=== PATIENT | male | born 1965 | race Caucasian/White ===

== ENCOUNTER 2018-07-14 11:29 | Emergency (ER) | payer OTHER ==
[~2018-07-14] VITALS: Ht 162.6 cm; Wt 94.3 kg
[~2018-07-14 11:29] MED LIST: JANUMET1 TAB PO; JANUVIA50 M1 PO; OMEPRAZOLE DR20 M1 PO; SIMVASTATIN20 M1 PO
[2018-07-14 11:36] VITALS: Ht 162.6 cm; Wt 94.3 kg
[2018-07-14 16:19] VITALS: BP 130/97
== END 2018-07-14 16:19 | disposition home or self-care (01) ==
LOC: ED 11:29
DX: S29.011A Strain of muscle and tendon of front wall of thorax, initial encounter (principal); I10 Essential (primary) hypertension; E11.9 Type 2 diabetes mellitus without complications; E78.00 Pure hypercholesterolemia, unspecified; X58.XXXA Exposure to other specified factors, initial encounter; Y93.89 Activity, other specified; Y92.89 Other specified places as the place of occurrence of the external cause; Y99.8 Other external cause status
CPT/HCPCS: Q0092